=== PATIENT | female | born 1945 | race African-American/Black ===

== ENCOUNTER 2016-09-29 20:48 | Emergency (ER) | payer MEDICARE, MEDICAID ==
[~2016-09-29] VITALS: Ht 167.6 cm; Wt 97.0 kg
[2016-09-29 23:20] LABS: BASOPHILS % 0.6 % (0.0-2.0); EOSINOPHILS % 2.1 % (0.0-5.0); HEMATOCRIT. 23.8 % (36.0-48.0); HEMOGLOBIN. 7.6 g/dL (12.0-16.0); LYMPHOCYTES % 44.3 % (20.0-50.0); MEAN CORPUSCULAR HEMOGLOBIN 23.3 pg (28.0-32.0); MEAN CORPUSCULAR VOLUME 73.4 fL (81.0-99.0); MEAN PLATELET VOLUME 7.7 fl (7.4-10.4); MONOCYTES % 10.7 % (2.0-8.0); NEUTROPHILS % 42.3 % (40.0-76.0); PLATELET 324 x1000/uL (130-400); RED BLOOD CELL COUNT 3.24 mill/uL (4.2-5.4); RED CELL DISTRIBUTION WIDTH 22.8 % (11.6-14.6)
[2016-09-29 23:28] LABS: PROTHROMBIN TIME 10.7 sec
[2016-09-29 23:38] LABS: CARBON DIOXIDE 24 mEq/L (21-32); CHLORIDE 106 mEq/L (98-107); TROPONIN I < 0.02 ng/mL (0.00-0.04)
[2016-09-30 00:17] LABS: CLARITY URINE CLEAR (CLEAR); COLOR URINE YELLOW (YELLOW); GLUCOSE URINE NEGATIVE (NEGATIVE); KETONES URINE TRACE (NEGATIVE); LEUKOCYTE ESTERASE URINE NEGATIVE (NEGATIVE); NITRITE URINE NEGATIVE (NEGATIVE); OCCULT BLOOD URINE NEGATIVE (NEGATIVE); PH URINE 5.5 (4.5-8.0); PROTEIN URINE NEGATIVE (NEGATIVE); SPECIFIC GRAVITY URINE 1.022 (1.005-1.030)
[2016-09-30 00:28] LABS: PLATELET ESTIMATE NORMAL
[2016-09-30 01:15] VITALS: BP 170/78
[2016-10-01 14:01] LABS: BG BASE EXCESS 0.3 mmol/L (-2.0-2.0); BG CARBOXYHEMOGLOBIN 0.2 % (0.5-1.5); BG DEOXYHEMOGLOBIN 4.1 % (0.0-5.0); BG FRACTION INSPIRED OXYGEN 21; BG HCO3 ACT 24.9 mmol/L (22.0-26.0); BG METHEMOGLOBIN 0.3 % (0.0-1.5); BG OXYGEN SATURATION 95.9 % (92.0-98.5); BG OXYHEMOGLOBIN 95.4 % (94.0-97.0); BG PCO2 39.6 mmHg (35.0-45.0); BG PH 7.416 (7.350-7.450); BG SAMPLE SITE RIGHT BRACHIAL; BG VENT MODE ROOM AIR
[2016-10-08] MEDS ORDERED: FURO40TA5 PO (10:43)
[2016-10-08] MEDS ORDERED: LISI-604 PO (10:43)
[2016-10-08] MEDS ORDERED: XALAO EACHEYE (10:43)
[2016-10-08] MEDS ORDERED: CLOP75TA33 PO (10:43)
[2016-10-08] MEDS ORDERED: FERR-63 PO (10:43)
[2016-10-08] MEDS ORDERED: ATOR10TA69 PO (10:43)
[2016-10-08] MEDS ORDERED: TIMO15DR12 EACHEYE (10:43)
[2016-10-08] MEDS ORDERED: METO50TA5 PO (10:43)
[2016-10-08] MEDS ORDERED: METF10002 PO (10:43)
[2016-10-08] MEDS ORDERED: GLIP5TAB12 PO (10:43)
== END 2016-09-30 01:57 | disposition home or self-care (01) ==
LOC: ER 21:32
DX: R06.00 Dyspnea, unspecified (principal); E11.9 Type 2 diabetes mellitus without complications; I10 Essential (primary) hypertension; Z86.73 Personal history of transient ischemic attack (TIA), and cerebral infarction without residual deficits; Z98.51 Tubal ligation status
CPT/HCPCS: 36415; 36600; 71010; 80053; 81003; 82375; 82805; 83880; 84484; 85025; 85610; 93005; 99285